=== PATIENT | female | born 1965 | race Caucasian/White ===

== ENCOUNTER 2018-12-30 15:01 | Outpatient (CLI) | payer OTHER ==
[2018-12-30] MEDS ORDERED: SIMV20TA3 PO (15:34)
[2018-12-30] MEDS ORDERED: ALLO300T PO (15:34)
[2018-12-30] MEDS ORDERED: METR1KIT TD (15:34)
[2018-12-30] MEDS ORDERED: RANI300T3 PO (15:34)
== END 2018-12-30 23:59 | disposition home or self-care (01) ==
LOC: STAR 15:01
PROVIDERS: ATTEND Internal Medicine Gastroenterology
DX: Z02.9 Encounter for administrative examinations, unspecified (principal)

== ENCOUNTER 2019-01-06 05:42 | Day surgery (SDC) | payer OTHER ==
[~2019-01-06] VITALS: Ht 170.2 cm; Wt 133.0 kg
[~2019-01-06 05:42] MED LIST: ALLO300T PO; METR1KIT TD; RANI300T3 PO; SIMV20TA3 PO
[2019-01-06] MEDS ORDERED: LACTATED RINGERS 1,000 ML IV SCH (06:10)
[2019-01-06 06:19] VITALS: BP 166/96
[2019-01-06] MEDS ORDERED: ONDANSETRON 2MG/ML, 2ML ONE (07:21)
[2019-01-06] MEDS ORDERED: ALBUTEROL/IPRATROPIUM 2.5MG/0.5MG, 3 ML NPPB PRN (07:30)
[2019-01-06] MEDS ORDERED: ONDANSETRON 2MG/ML, 2ML IV PRN (07:30)
[2019-01-06] MEDS ORDERED: hydrALAzine 20 MG/ML, 1ML IV PRN (07:30)
[2019-01-06] MEDS ORDERED: MIDAZOLAM 1 MG/ML, 2ML IV PRN (07:30)
[2019-01-06] MEDS ORDERED: ACETAMINOPHEN 325 MG TABLET PO PRN (07:30)
[2019-01-06] MEDS ORDERED: OXYcodone 5 MG/5 ML ORAL.SOL UDC PO PRN (07:30)
[2019-01-06] MEDS ORDERED: PROPOFOL 50 ML ONE (07:41)
== END 2019-01-06 09:05 | disposition home or self-care (01) ==
LOC: OUT 05:42
PROVIDERS: ATTEND Internal Medicine Gastroenterology
DX: K63.89 Other specified diseases of intestine (principal); K64.1 Second degree hemorrhoids; K21.9 Gastro-esophageal reflux disease without esophagitis; E03.9 Hypothyroidism, unspecified; E78.5 Hyperlipidemia, unspecified; E66.9 Obesity, unspecified; Z68.42 Body mass index [BMI] 45.0-49.9, adult; Z88.1 Allergy status to other antibiotic agents; Z88.0 Allergy status to penicillin
CPT/HCPCS: 45380; 88305; J2405; J2704; J7120

== ENCOUNTER 2020-08-28 08:05 | Outpatient (CLI) | payer OTHER ==
[~2020-08-28 08:05] MED LIST changes: +SIMV20TA19 PO; -SIMV20TA3 PO
[2020-08-28] MEDS ORDERED: MIDAZOLAM 1 MG/ML, 5ML ONE (08:59)
[2020-08-28] MEDS ORDERED: FENTANYL PF 100 MCG/2ML ONE (08:59)
[2020-08-28] MEDS ORDERED: GADOTERATE 10 MMOL/20 ML SYR ONE (10:32)
== END 2020-08-28 23:59 | disposition home or self-care (01) ==
LOC: CFH 08:05 → RAD 23:59
PROVIDERS: ATTEND Obstetrics & Gynecology Female Pelvic Medicine and Reconstructive Surgery
DX: Z12.31 Encounter for screening mammogram for malignant neoplasm of breast (principal); R10.2 Pelvic and perineal pain; Z88.2 Allergy status to sulfonamides; Z90.710 Acquired absence of both cervix and uterus
CPT/HCPCS: 72197; 77063; 77067; 99156; 99157; A9575; J2250; J3010; 72195

== ENCOUNTER → 2020-10-08 | Outpatient (CLI) | payer OTHER ==
[~2020-10-08] MED LIST changes: +FENTANYL PF 100 MCG/2ML ONE; +FLUMAZENIL 0.1 MG/1 ML, 5ML ONE; +MIDAZOLAM 1 MG/ML, 5ML ONE; +NALOXONE 1 MG/ML, 2ML ONE
== END | disposition home or self-care (01) ==
LOC: RAD 08:14
PROVIDERS: ATTEND Family Medicine
DX: M75.112 Incomplete rotator cuff tear or rupture of left shoulder, not specified as traumatic (principal); S46.112A Strain of muscle, fascia and tendon of long head of biceps, left arm, initial encounter; M75.52 Bursitis of left shoulder; M19.012 Primary osteoarthritis, left shoulder; E21.3 Hyperparathyroidism, unspecified; N18.9 Chronic kidney disease, unspecified; Z88.0 Allergy status to penicillin; Z88.2 Allergy status to sulfonamides; X58.XXXA Exposure to other specified factors, initial encounter; Y93.89 Activity, other specified; Y92.89 Other specified places as the place of occurrence of the external cause; Y99.8 Other external cause status
CPT/HCPCS: 73221; 99156; 99157; J2250; J3010; J2310